=== PATIENT | male | born 1995 | race Caucasian/White ===

== ENCOUNTER 2020-10-08 14:21 | Emergency (ER) | payer BC ==
[~2020-10-08] VITALS: Ht 180.3 cm; Wt 81.6 kg
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
[2020-10-08] MEDS ORDERED: IBUPROFEN 600 MG TABLET PO ONE (15:00)
[2020-10-08 15:39] VITALS: BP 132/74
--- NOTE | 2020-10-08 15:39 | NUR ---
Patient discharged to home in stable condition. Written and verbal after care instructions given. Patient verbalizes understanding of instruction.
== END 2020-10-08 15:40 | disposition home or self-care (01) ==
LOC: ER 14:25
DX: S80.02XA Contusion of left knee, initial encounter (principal); Z88.0 Allergy status to penicillin; Z60.2 Problems related to living alone; V43.52XA Car driver injured in collision with other type car in traffic accident, initial encounter; Y93.89 Activity, other specified; Y92.413 State road as the place of occurrence of the external cause; Y99.8 Other external cause status
CPT/HCPCS: 73564-TC